=== PATIENT | female | born 1970 | race Caucasian/White ===

== ENCOUNTER 2022-01-17 00:50 | Emergency (ER) | payer BC, OTHER ==
[~2022-01-17] VITALS: Ht 167.6 cm; Wt 69.9 kg
[~2022-01-17 00:50] MED LIST: AMLO10TA1 PO; ATOR10TA PO; GLIM2TAB PO; METF1TAB PO; [UNRECOGNIZED DRUG - CODE] PO
[2022-01-17 01:01] VITALS: BP 137/81
--- NOTE | 2022-01-17 01:06 | NUR ---
Otilia chawla in [facility] - 01/17/22 at 0106 by [facility] pt taken to bed 11.
--- NOTE | 2022-01-17 01:06 | NUR ---
Patient ambulated to bed 11.
--- NOTE | 2022-01-17 01:13 | NUR ---
Dr. Kang examining patient.
[2022-01-17] MEDS ORDERED: HYDROcodone/APAP 7.5/325 MG 1 TAB PO ONE (01:15)
--- NOTE | 2022-01-17 01:16 | NUR ---
51 yo f bib self with c/c of posterior head pain s/p fall about 30mins ago. pt [place] the [place] when [place] and fell. reports +loc +dizziness. denies n/v. pt has a deformity to back of head s/p fall. denies taking medication prior to coming. pt is etoh. hx:dm and htn nka
--- NOTE | 2022-01-17 01:28 | NUR ---
pt taken to ct
--- NOTE | 2022-01-17 01:40 | NUR ---
PT RETURN FROM CT
[2022-01-17 02:40] VITALS: BP 137/81
--- NOTE | 2022-01-17 02:40 | NUR ---
Patient discharged with v/s stable. Written and verbal after care instructions given and explained. Patient verbalized understanding. Ambulatory with steady gait. All questions addressed prior to discharge. Advised to follow up with PMD.
== END 2022-01-17 02:40 | disposition home or self-care (01) ==
LOC: MED 00:50
DX: S09.90XA Unspecified injury of head, initial encounter (principal); E11.9 Type 2 diabetes mellitus without complications; I10 Essential (primary) hypertension; Z79.899 Other long term (current) drug therapy; W01.198A Fall on same level from slipping, tripping and stumbling with subsequent striking against other object, initial encounter; Y93.89 Activity, other specified; Y92.89 Other specified places as the place of occurrence of the external cause; Y99.8 Other external cause status
CPT/HCPCS: 70450; 72125; 99284